=== PATIENT | female | born 1955 | race American Indian/Alaskan Native ===

== ENCOUNTER 2017-01-10 11:08 | Outpatient (CLI) | payer BC ==
--- NOTE | 2017-01-10 12:57 | Ultrasound Report ---
ULTRASOUND ABDOMEN LIMITED INDICATION: RUQ abdominal pain. COMPARISON: None similar at this institution. FINDINGS: Right upper quadrant sonography demonstrates diffuse hepatic echogenic coarsening. Grossly preserved contours. No definite focal suspicious lesions or biliary dilatation. Gallbladder suboptimally distended without gallstones or pericholecystic fluid. Gallbladder wall thickness is 2.5 mm. Common bile duct is 3.4 mm. Imaged pancreas, nonaneurysmal abdominal aorta and IVC appear within normal limits. Mild right hydronephrosis with upper collecting system prominence/dilatation. Right kidney estimated at 12.2 x 5.7 x 5.8 cm with cortical thickness of 1.2 cm. CONCLUSION: Fatty liver, suboptimally distended gallbladder and mild right hydronephrosis, as described. Please correlate. Thank you for the opportunity to participate in this patient's care.
== END 2017-01-10 11:09 | disposition home or self-care (01) ==
LOC: US 11:08
PROVIDERS: ATTEND Internal Medicine Gastroenterology
DX: K76.0 Fatty (change of) liver, not elsewhere classified (principal); N13.30 Unspecified hydronephrosis; K59.00 Constipation, unspecified; Z86.19 Personal history of other infectious and parasitic diseases; R11.0 Nausea
CPT/HCPCS: 76705

== ENCOUNTER 2017-02-03 12:53 | Outpatient (CLI) | payer BC ==
[2017-02-03] MEDS ORDERED: WATER FOR INJ (PF) IV ONE (15:25)
[2017-02-03] MEDS ORDERED: KINEVAC IV ONE ×2 (15:25→15:27)
--- NOTE | 2017-02-03 16:52 | Nuclear Medicine Report ---
Hepatobiliary scan with ejection fraction. History: Right upper quadrant pain. Procedure and findings: The study was performed after the intravenous injection of 5 mCi of technetium 99 Choletec. Hepatic, gallbladder, and small bowel activity are normal. Ejection fraction was calculated after the intravenous injection of 2.27 mcg of Kinevac. Ejection fraction measured 71% which is normal. The patient reported the usual symptoms of abdominal pain and nausea after Kinevac injection. Impression: Normal study.
== END 2017-02-03 12:54 | disposition home or self-care (01) ==
LOC: NM 12:53
PROVIDERS: ATTEND Internal Medicine Gastroenterology
DX: R10.11 Right upper quadrant pain (principal); R11.0 Nausea; R93.8 Abnormal findings on diagnostic imaging of other specified body structures
CPT/HCPCS: 78227; A9537; J2805